=== PATIENT | male | born 1960 ===

== ENCOUNTER 2022-08-26 04:22 | Outpatient (CLI) | payer OTHER, SELFPAY ==
[2022-08-26 11:40] LABS: ALT 30 U/L (16-63); AST 19 U/L (15-37); Albumin 3.8 g/dL (3.4-5.0); Alkaline Phosphatase 46 U/L (46-116); Anion Gap 6.9 mmol/L (3-11); BUN 14 mg/dL (7-18); Bilirubin, Total 0.8 mg/dL (0.2-1.0); CO2 29.1 mmol/L (21.0-32.0); CREATININE 1.1 mg/dL (0.70-1.30); Calculated LDL 96 mg/dL (<100); Chloride 102 mmol/L (98-107); Cholesterol 173 mg/dL (<200); Estimated GFR 76.37 (mL/min/1.73m2); Glucose 97 mg/dL (74-106); HDL Cholesterol 54 mg/dL (40-60); Potassium 3.9 mmol/L (3.5-5.1); Sodium 138 mmol/L (136-145); Total Protein 7.7 g/dL (6.4-8.2); Triglyceride 119 mg/dL (<150)
== END 2022-08-26 04:23 | disposition home or self-care (01) ==
LOC: LBO 04:22
PROVIDERS: PCP Family Medicine; Visit Provider Family Medicine
DX: Z13.220 Encounter for screening for lipoid disorders (principal)
CPT/HCPCS: 36415; 80053; 80061

== ENCOUNTER 2023-01-11 00:46 | Outpatient (CLI) | payer OTHER, SELFPAY ==
--- NOTE | 2023-01-11 08:11 | DI.RAD_ITS ---
Exam(s) XR CHEST 2V PA LATERAL EXAM: XR CHEST 2V PA LATERAL CLINICAL HISTORY: Two months of cough,r05.9. TECHNIQUE: 2D digital imaging was performed. COMPARISON: No exams were available for comparison FINDINGS: 2 views: Heart size is normal. The mediastinum is not widened. Lungs are clear. No infiltrates nor pleural effusions. IMPRESSION: No acute pulmonary findings. DATA REPOSITORY: RADIATION DOSE DELIVERED:
== END 2023-01-11 01:06 ==
LOC: DI 00:47
PROVIDERS: PCP Family Medicine; Visit Provider Family Medicine
DX: R05.9 Cough, unspecified (principal)
CPT/HCPCS: 71046

== ENCOUNTER 2023-04-01 11:17 | Day surgery (SDC) | payer OTHER, SELFPAY ==
--- NOTE | 2023-03-31 20:19 | PDOC.DSDIS_ITS ---
Date of service: 04/01/23 Time of Service: 12:47 Discharge Plan Disposition Patient Disposition: Home Condition: Good Discharge Details Reason For Visit: colon scope Attending Provider: Loida Delatorre Primary Care Provider: Aden Fernandez Home Meds and New Rx's Prescriptions: Continued multivitamin Tablet 1 tab PO DAILY saw palmetto 1 tab PO DAILY Discontinued bisacodyl [Dulcolax (bisacodyl)] 5 mg tablet,delayed release (DR/EC) 5 mg PO ONCE Qty: 4 0RF Rx Instructions: Take according to provider's instructions for colonoscopy prep. polyethylene glycol 3350 17 gram/dose powder 17 g PO ONCE Qty: 238 0RF Rx Instructions: To be taken as directed by prescriber's office for colonoscopy prep. Discharge Instructions Additional Instructions: DSU Colonoscopy Post- Op Instructions Instructions for Everyone who is given Anesthesia: For your safety, please do the following for the next twenty-four (24) hours: *Do Not operate a motor vehicle (car, truck, motorcycle, etc.) *Do Not drink alcoholic beverages or use any recreational drugs for the first 24 hours or while taking pain medications. The medications in your body may have a reaction that can be dangerous. *Do Not make any important decisions or sign any important papers. Findings: x1 small polyp Follow up: My office will send a letter in 2 to 3 weeks with the pathology report and when to repeat the colonoscopy, most likely 5 years time. 1. No lifting over 20 pounds or strenuous activity for the first 24 hours after your procedure. After 24 hours there are no restrictions on your activity but you may feel fatigued for a few days. 2. After you arrive home you may have a light meal and return to your normal diet as you can tolerate it without feeling sick to your stomach. 3. You may have a bloated, gaseous feeling in your belly (abdomen) after a colonoscopy. Passing gas and belching will help. Walking or lying down on your left side with your knees flexed may relieve the discomfort. Call the office at [phone] (Office) or [phone] (Hospital) right away if you notice any of the following: a.Vomiting of blood or ?coffee ground stools?. b.Rectal bleeding 1Tbsp, blood clots or continuous bleeding. c.Severe belly (abdominal) pain. d.A hard distended belly (abdomen) and an inability to pass gas. 4. Please don?t expect to have a normal BM (bowel movement) for 2-3 days after your procedure. 5. If there are questions regarding the findings of your procedure, please contact your doctor 6. If you are unable to contact your doctor with a problem, contact the hospital at [phone]. 7. Continue all your regular medications unless directed otherwise. I understand the above instructions and have no questions. Signature of Patient or Adult Escort Name of Responsible Adult Escort Signature of Nurse Date/Time Activity:: see above Diet:: see above Discharge Orders Discharge Orders: Discharge Order (Routine); Ordered 04/01/23 Ordered By: Loida Delatorre DS: Diagnosis Discharge Diagnosis (1) History of colon polyps: Status: Acute Asessment and Plan: The patient is seen and examined after their colonoscopy.? The patient has been able to pass gas.? They are not having abdominal pain.? They have been able to tolerate liquids and a snack.? They do not have any nausea or vomiting.? They are not having any chest pain or shortness of breath.??? They are not having any rectal bleeding..? Their vital signs have been stable-see nursing notes. We discussed findings during their colonoscopy, and any biopsies that were done/polyps that were removed. The patient will be sent a letter with any biopsy results, and when to repeat the colonoscopy.-see discharge instructions. Patient was given explicit instructions to follow-up regarding colonoscopy-refer to discharge instructions.? We reviewed resumption of medications. Patient verbalized understanding and discharged in stable and satisfactory condition- See nursing notes.
--- NOTE | 2023-04-01 08:51 | W.COLOREPORT ---
Date of service: 04/01/23 Time of Service: 08:52 Colonoscopy Report Date of procedure: 04/01/23 Pre-op diagnosis general: adenomatous polyps Post-op diagnosis procedure note: other (adenomatous polyp) Surgeon: Loida Delatorre Anesthesia Type: Other (no anesthesia ) Estimated blood loss (mL): 1 Pathology: other Complications: None Disposition: same day Prep: Miralax/Dulcolax Procedure Description: After informed consent was obtained the patient was taken to the procedure room and placed in a left decubitous position. Monitors were applied and a time out was done. The patients name, date of , procedure, allergies to medications and metal in their body was reviewed. The patient was then sedated. Once sedated and comfortable a rectal exam was done. External exam was normal. Internal exam revealed a normal sphincter tone and no palpable masses. The scope was then introduced and retrofelexed. No internal hemorrhoids were identified. The scope was then advanced to the cecum without difficulty. The TI and appendiceal orifice were identified. The prep was BBPS 3 in all segments for total of 9. The scope was then slowly retracted over 14 minutes back into the rectum. He has a 5 mm flat polyp at 40 cm that is removed with a cold biting snare. All specimens are retrieved and no bleeding is noted. There is no AVMs or diverticula visualized today.. The scope was removed and the patient was woken up and taken back to Same day surgery in stable condition. The patient tolerated the procedure well and there were no immediate complications. Follow up: The patient should follow up in ~5 years unless they develop changes in bowel habits or other new gastrointestinal complaints.
[2023-04-01 11:31] VITALS: BP 138/85; PULSE 73; RESP 17; TEMP 36.4; O2SAT 96
[2023-04-01] MEDS: Lactated Ringers 1,000 ML 80 ML IV (11:46)
--- NOTE | 2023-04-01 11:56 | W.ANESPRE ---
General Info Date of Service Date Performed: 04/01/23 Height: 5 ft 10.75 in Weight: 134.3 kg Body Mass Index (BMI): 41.5 Surgical Procedure: Operation Date: 04/01/23 11:35 Proposed Procedure Side Surgeon p Tatiana Delatorre, Meds Allergies and Home Medications Allergies Allergy/AdvReac Type Severity Reaction Status Date / Time No Known Allergies Allergy Verified 04/01/23 11:36 Home Medication Medication Instructions Recorded saw palmetto 1 tab PO DAILY 07/08/22 multivitamin 1 tab PO DAILY 08/03/22 Current Visit Medications: Current Medications Generic Name Dose Route Start Last Admin Trade Name Freq PRN Reason Stop Dose Admin Hyoscyamine Sulfate 0.125 mg 04/01/23 08:18 Hyoscyamine 0.125 Mg Sl/Oral/Chew SL DIRECTED PRN Ringer's Solution 1,000 mls @ 80 mls/hr 04/01/23 06:00 04/01/23 11:46 IV 04/01/23 23:59 80 mls/hr INFUSION TAWANA Administration IV Miscellaneous Supplies 1 each 04/01/23 06:00 Iv Access IV 04/01/23 23:59 DIRECTED TAWANA Ondansetron HCl 4 mg 04/01/23 08:18 Ondansetron 4 Mg/2 Ml Vial IVP Q4H PRN PRN Nausea / Vomiting Sodium Chloride 0 ml 04/01/23 06:00 Normal Saline Flush 10 Ml Syr IV 04/01/23 23:59 PRN PRN Sodium Chloride 0 ml 04/01/23 06:00 Normal Saline 10 Ml Vial IJ 04/01/23 23:59 DIRECTED PRN Sterile Water 0 ml 04/01/23 06:00 Water,Injection,Sterile 10 Ml Vial IJ 04/01/23 23:59 DIRECTED PRN PFSH Active Problems Active Problems: Problem Status Onset Code History of colon polyps Z86.010 Encounter for screening for malignant neoplasm of colon Z12.11 Surgical History Surgical History History of colonoscopy History of vasectomy (07/15/08) 2007 at [facility]. 5 year repeat. Tobacco Smoking/Tobacco Use Status: Never Alcohol Alcohol Intake: current Alcohol intake frequency: a few times a week Substance Use Substance use: Never Substance use type: does not use Vital Signs and Lab Results Vital Signs Most Recent Vital Signs in EMR: Most Recent Vital Signs Temp Pulse Resp BP Pulse Ox 36.4 C L 73 17 138/85 96 04/01/23 11:31 04/01/23 11:31 04/01/23 11:31 04/01/23 11:31 04/01/23 11:31 Lab Results Blood Type / Crossmatch: No Data to Display Complete Blood Count: No Data to Display Complete Metabolic Panel: No Data to Display Liver Function Panel: No Data to Display Coagulation Panel: No Data to Display Cardiac Panel: No Data to Display Arterial Blood Gas: No Data to Display Venous Blood Gas: No Data to Display Pancreas Panel: No Data to Display Thyroid Panel: No Data to Display Infectious Disease: No Data to Display Blood Cultures: No Data to Display Toxicology Panel: No Data to Display Anesthesia Assessment and Plan Anesthesia History Personal History: No History of Anesthesia Complications Family History: No Family History of Anesthesia Complications Exercise Tolerance Exercise Tolerance: Metabolic Equivalents>4 Pertinent Negatives Pertinent Negatives: No Symptoms of GERD, No Major Cardiovascular Symptoms or Complaints, No Major Pulmonary Symptoms or Complaints and No History of CVA/TIA Cardiac & Pulmonary Exam Cardiac Exam: Normal S1/S2 Heart Sounds Pulmonary Exam: Clear Bilateral Breath Sounds Implantable Cardiac Device Does patient have a Pacemaker or an ICD?: No Airway Exam Known Difficult Airway: No Mallampati Class: 2 Mouth Opening: Normal (> 3cm) Thyromental Distance: Greater than 3 cm Neck Range of Motion: Full ROM Neck Circumference: Normal Teeth Condition: Normal Dentition ASA Classification ASA Score: ASA 3 Emergency Case?: No NPO Status NPO Status: NPO Clears >2 hours, Solids >8 hours Anesthesia Plan Resuscitation Status: Full Code Anesthesia Technique: General Anesthesia Airway Planned: Natural Airway Monitors Used: Standard Monitors
[2023-04-01 12:08] VITALS: BMI 41.5
--- NOTE | 2023-04-01 12:30 | BOWEL_PTH ---
PATIENT: Angel Elliott LOC: [facility] U#:[id number] AGE/SX: 62/M ROOM: RE04/01/[address]: Loida Delatorre : 1960 BED: DIS: 04/01/2023 SPEC #: [id number] RECD: 04/01/23 13:14 STATUS: S[place] REQ #: [id number] GILLIAN: 04/01/23 12:[address]: Loida Delatorre DEPT: Surgical Specimen RECD BY: Winnie Martinez ENTERED: 04/01/23 13:15 SP TYPE: Bowel OTHR DR: Aden Fernandez DO Tissues: 1 - BIOPSY BOWEL Procedures: GROSS AND MICRO LEVEL 4 Comments: [id number]
[2023-04-01 12:40] VITALS: BP 137/86; PULSE 67; RESP 16; TEMP 36.3; O2SAT 97
--- NOTE | 2023-04-01 12:50 | W.ANESPOSTOP ---
Postoperative Evaluation Date, Time and Location Date Performed: 04/01/23 Time Performed: 12:50 Patient Location: Day Surgery Unit Vital Signs Most Recent Imported Vital Signs: Most Recent Vital Signs Temp Pulse Resp BP Pulse Ox 36.3 C L 67 16 137/86 97 04/01/23 12:40 04/01/23 12:40 04/01/23 12:40 04/01/23 12:40 04/01/23 12:40 Pain Score Most Recent Pain Score: Most Recent Pain Score Pain Level 0 04/01/23 12:40 Assessment Mental Status: Awake (Alert & Oriented to Patient Baseline) Airway and Respiratory Function: Patent airway with normal (patient baseline) respiratory exam Cardiovascular Function: Hemodynamically Stable Hydration Status: Adequately Hydrated Nausea & Vomiting: No Nausea or Vomiting Pain: Pt. Denies Any Pain Peripheral Nerve Block: Patient did not receive a nerve block
== END 2023-04-01 13:00 | disposition home or self-care (01) ==
PROVIDERS: PCP Family Medicine; Visit Provider Surgery
PROC: 0DJD8ZZ Inspection of Lower Intestinal Tract, Via Natural or Artificial Opening Endoscopic (ICD-10-PCS; CPT 45378; principal; 2023-04-01 11:30)
DX: Z12.11 Encounter for screening for malignant neoplasm of colon (principal); K63.5 Polyp of colon; Z86.010 Personal history of colon polyps
CPT/HCPCS: 45385; 88305

== ENCOUNTER 2023-05-25 12:30 | Outpatient (CLI) | payer OTHER, SELFPAY ==
--- NOTE | 2023-05-25 12:15 | DI.RAD_ITS ---
Exam(s) XR KNEE LT 3V AP,LAT,KARIS EXAM: XR KNEE LT 3V AP,LAT,KARIS CLINICAL HISTORY: CHRONIC PAIN-G89.29, PAIN IN LT KNEE-M25.562. TECHNIQUE: 2D digital imaging was performed of the left knee. Three images were obtained. AP, late ral and PA tunnel views were obtained. COMPARISON: There are no priors for comparison. FINDINGS: BONES: No acute fracture is present. No bony destructive lesion is seen. There is an enthesophyte at the superior patella. JOINTS: The knee is normally aligned. There is a small joint effusion. SOFT TISSUE: Normal. IMPRESSION: No evidence of an acute or healing fracture. DATA REPOSITORY: RADIATION DOSE DELIVERED:
== END 2023-05-25 12:50 ==
LOC: DI 12:31
PROVIDERS: PCP Family Medicine; Visit Provider Nurse Practitioner Family
DX: G89.29 Other chronic pain (principal); M25.562 Pain in left knee
CPT/HCPCS: 73562

== ENCOUNTER 2025-10-16 03:36 | Outpatient (CLI) | payer OTHER, SELFPAY ==
[2025-10-16 12:32] LABS: ALT 26 U/L (10-49); AST 22 U/L (<34); Albumin 4.5 g/dL (3.4-5.0); Alkaline Phosphatase 42 U/L (46-116); Anion Gap 8.2 mmol/L (3-11); BUN 10 mg/dL (9-23); Bilirubin, Total 0.80 mg/dL (0.2-1.2); CO2 26.8 mmol/L (20.0-31.0); Calcium 9.3 mg/dL (8.3-10.6); Chloride 105 mmol/L (98-107); Cholesterol 192 mg/dL (<200); Glucose 100 mg/dL (74-106); HDL Cholesterol 54 mg/dL (>40); Potassium 4.2 mmol/L (3.5-5.1); Sodium 140 mmol/L (136-145); Total Protein 7.6 g/dL (5.7-8.2)
[2025-10-17 11:02] LABS: Lyme Ab w Rflx to Lyme Confirm Negative (Negative)
[2025-10-18 15:11] LABS: B. miyamotoi PCR Negative (Negative); Babesia divergens/MO-1 Negative (Negative); Ehrlichia muris eauclairensis Negative (Negative)
== END 2025-10-16 03:37 | disposition home or self-care (01) ==
LOC: LBO 03:36
PROVIDERS: PCP Family Medicine; Visit Provider Family Medicine
DX: E66.9 Obesity, unspecified (principal); W57.XXXA Bitten or stung by nonvenomous insect and other nonvenomous arthropods, initial encounter
CPT/HCPCS: 36415; 80053; 80061; 87798; 86618